=== PATIENT | male | born 1950 | race Caucasian/White ===

== ENCOUNTER 2019-04-27 11:13 | Day surgery (SDC) | payer MEDICARE ==
[~2019-04-27] VITALS: Ht 175.3 cm; Wt 81.2 kg
[~2019-04-27 11:13] MED LIST: ATOR40TA75 PO; ECOT81TA5 PO; FLOM0.4C39 PO; NS 1,000 ML IV ONE
--- NOTE | 2019-04-27 12:25 | ROOR ---
Patient Name: Parminder Grijalva Procedure Date: 04/27/2019 11:53 AM Date of : 1950 Age: 68 Room: [facility] Gender: Male Note Status: Finalized Procedure: Colonoscopy Indications: High risk colon cancer surveillance: Personal history of colonic polyps Providers: Mathew Kelly Jr, MD Referring MD: Teresa Saavedra DO Requesting Provider: Medicines: Propofol per Anesthesia Complications: No immediate complications. Procedure: Pre-Anesthesia Assessment: - Prior to the procedure, a History and Physical was performed, and patient medications and allergies were reviewed. The patient is competent. The risks and benefits of the procedure and the sedation options and risks were discussed with the patient. All questions were answered and informed consent was obtained. Patient identification and proposed procedure were verified by the physician and the nurse in the pre-procedure area and in the procedure room. Mental Status Examination: alert and oriented. Airway Examination: normal oropharyngeal airway and neck mobility. Respiratory Examination: clear to auscultation. CV Examination: normal. ASA Grade Assessment: II - A patient with mild systemic disease. After reviewing the risks and benefits, the patient was deemed in satisfactory condition to undergo the procedure. The anesthesia plan was to use moderate sedation / analgesia (conscious sedation). Immediately prior to administration of medications, the patient was re-assessed for adequacy to receive sedatives. The heart rate, respiratory rate, oxygen saturations, blood pressure, adequacy of pulmonary ventilation, and response to care were monitored throughout the procedure. The physical status of the patient was re-assessed after the procedure. The Colonoscope was introduced through the anus and advanced to the cecum, identified by appendiceal orifice and ileocecal valve. The colonoscopy was performed without difficulty. The patient tolerated the procedure well. The quality of the bowel preparation was adequate. Findings: The rectum, recto-sigmoid colon, sigmoid colon, descending colon, transverse colon, ascending colon, cecum, appendiceal orifice and ileocecal valve appeared normal. Impression: - The rectum, recto-sigmoid colon, sigmoid colon, descending colon, transverse colon, ascending colon, cecum, appendiceal orifice and ileocecal valve are normal. - No specimens collected. Recommendation: - Discharge patient to home (ambulatory). - Repeat colonoscopy in 5 years for surveillance. Mathew Kelly MD Mathew Kelly Jr, MD 04/27/2019 12:24:43 PM Electronically signed by Mathew Kelly Jr, MD Number of Addenda: 0 Note Initiated On: 04/27/2019 11:53 AM Estimated Blood Loss: Estimated blood loss: none.
[2019-04-27 12:55] VITALS: BP 123/69
== END 2019-04-27 13:04 | disposition home or self-care (01) ==
LOC: M OPP 11:13
PROVIDERS: ATTEND Surgery
DX: Z12.11 Encounter for screening for malignant neoplasm of colon (principal); Z86.010 Personal history of colon polyps; E78.5 Hyperlipidemia, unspecified; F41.9 Anxiety disorder, unspecified; F32.9 Major depressive disorder, single episode, unspecified; N40.1 Benign prostatic hyperplasia with lower urinary tract symptoms; F12.10 Cannabis abuse, uncomplicated; Z79.82 Long term (current) use of aspirin; Z79.899 Other long term (current) drug therapy

== ENCOUNTER 2024-06-30 10:05 | Day surgery (SDC) | payer MEDICARE ==
[~2024-06-30] VITALS: Ht 175.3 cm; Wt 81.9 kg
[~2024-06-30 10:05] MED LIST changes: +HYDR50TA70 PO; -NS 1,000 ML IV ONE; +NS 250 ML IV ONE
[2024-06-30] MEDS ORDERED: OMEG12003 PO (10:40)
[2024-06-30] MEDS ORDERED: OCUV1CAP4 PO (10:40)
[2024-06-30] MEDS ORDERED: CIDA500T2 PO (10:40)
[2024-06-30] MEDS ORDERED: MAGN400T2 PO (10:40)
[2024-06-30] MEDS ORDERED: THERTAB52 PO (10:40)
[2024-06-30] MEDS ORDERED: propofoL 200 MG/20 ML VIAL As Ordered ONE (11:53)
[2024-06-30 12:08] VITALS: TEMP 98.2
[2024-06-30 12:28] VITALS: BP 126/64; O2SAT 97
== END 2024-06-30 12:37 | disposition home or self-care (01) ==
LOC: M OPP 10:05
PROVIDERS: ATTEND Surgery
DX: Z12.11 Encounter for screening for malignant neoplasm of colon (principal); K64.0 First degree hemorrhoids; Z86.0100 Personal history of colon polyps, unspecified; Z90.49 Acquired absence of other specified parts of digestive tract; E78.00 Pure hypercholesterolemia, unspecified; Z79.899 Other long term (current) drug therapy; Z79.82 Long term (current) use of aspirin